=== PATIENT | male | born 1985 | race African-American/Black ===

== ENCOUNTER 2022-11-23 10:10 | Emergency (ER) | payer OTHER ==
[~2022-11-23] VITALS: Ht 180.3 cm; Wt 85.9 kg
[2022-11-23] MEDS ORDERED: LABETALOL 100MG/20ML VIAL IV STA ×2 (10:37→11:56)
[2022-11-23] MEDS ORDERED: CHLORTHALIDONE 25 MG TAB PO ONE (10:40)
[2022-11-23 10:51] LABS: HEMATOCRIT 43.5 % (42.0-52.0); HEMOGLOBIN 14.6 g/dl (13.5-17.5); MEAN CORPUSCULAR HEMOGLOBIN 30.8 pg (27.0-33.0); MEAN CORPUSCULAR HGB CONC 33.6 g/dl (32.0-36.5); MEAN CORPUSCULAR VOLUME 91.8 fl (80.0-96.0); PLATELET COUNT, AUTOMATED 265 10^3/uL (150-450); RED BLOOD COUNT 4.74 10^6/uL (4.30-6.10); WHITE BLOOD COUNT 5.6 10^3/uL (4.0-10.0)
[2022-11-23 11:27] LABS: ALBUMIN 3.9 G/DL (3.2-5.2); ALKALINE PHOSPHATASE 83 U/L (46-116); ALT/SGPT 41 U/L (7.0-40); AST/SGOT 26 U/L (<34); BILIRUBIN,TOTAL 0.6 MG/DL (0.3-1.2); BLOOD UREA NITROGEN 11 MG/DL (9-23); CALCIUM LEVEL 8.4 MG/DL (8.5-10.1); CARBON DIOXIDE LEVEL 30 MMOL/L (20-31); CHLORIDE LEVEL 105 MMOL/L (98-107); CREATININE FOR GFR 1.06 MG/DL (0.70-1.30); GLOMERULAR FILTRATION RATE > 60.0 (>60); GLUCOSE, FASTING 94 MG/DL (60-100); SODIUM LEVEL 138 MMOL/L (136-145); TOTAL PROTEIN 6.8 G/DL (5.7-8.2)
[2022-11-23 12:06] VITALS: BP 188/120
[2022-11-23 12:40] LABS: CANNABINOIDS URINE NEGATIVE (NEGATIVE); PHENCYCLIDINE URINE NEGATIVE (NEGATIVE)
[2022-11-23 12:41] LABS: AMPHETAMINES LEVEL URINE NEGATIVE (NEGATIVE); BARBITURATES URINE NEGATIVE (NEGATIVE); BENZODIAZEPINES URINE NEGATIVE (NEGATIVE); COCAINE METABOLITE URINE NEGATIVE (NEGATIVE); METHADONE URINE NEGATIVE (NEGATIVE); OPIATES URINE NEGATIVE (NEGATIVE)
[2022-11-23] MEDS ORDERED: CHLO125TA PO (13:29)
[2022-11-23 13:45] VITALS: BP 177/120
== END 2022-11-23 13:52 | disposition home or self-care (01) ==
LOC: M ED 10:10
DX: I10 Essential (primary) hypertension (principal); I49.49 Other premature depolarization; Z88.0 Allergy status to penicillin; Z88.2 Allergy status to sulfonamides; Z79.83 Long term (current) use of bisphosphonates